=== PATIENT | female | born 1950 | race Caucasian/White ===

== ENCOUNTER 2017-01-28 23:00 | Inpatient (IN) | payer OTHER ==
[~2017-01-28] VITALS: Ht 152.4 cm; Wt 136.1 kg
--- NOTE | ~2017-01-28 | PN ---
Unit #: [id number] #: [id number] Patient: ISRAEL SUAREZ [id number] [facility] [address] [place] [address] [id number] I MR#: [id number] NAME: ISRAEL SUAREZ ROOM: [facility] Age: 66 Sex: F Admission Date: 01/29/2017 : 1950 Attending Physician: Anne Naylor M.D. Admitting Physician: Anne Naylor M.D. Primary Care Physician: Isabel Doctor Not In System [facility] PROGRESS NOTES DATE January 31, 2017 DISCUSSION Ms. Suarez is a 66-year-old white female, with mood disorder, who was seen today and chart was reviewed and the case was discussed with the staff. The patient has been anxious, withdrawn, and rather seclusive to herself. Meanwhile, she has been cooperative with the treatment recommendations and has been taking the medications and tolerating them fairly well with no reported side effects. MENTAL STATUS EXAMINATION An elderly white female, who was casually dressed with fair personal hygiene and appears to be in no acute distress or discomfort. The patient was awake and alert with impaired attention and concentration. Her mood was anxious with a congruent affect. The patient denies any suicidal or homicidal ideations. Her insight and judgment remain slightly impaired. TREATMENT PLAN 1. We will continue her on her current treatment protocol, and will monitor her response to the medications, and make further adjustments as needed. 2. We will continue to followup. Dictated by... Yojana Mata/darrell TD: 02/01/2017 07:35 JOB #: [id number] Unit #: [id number] #: [id number] Patient: ISRAEL SUAREZ PROGRESS NOTES Page 1 of 1 X Anne Naylor MD PROGRESS NOTE
--- NOTE | ~2017-01-28 | DS ---
Unit #: [id number] #: [id number] Patient: ISRAEL SUAREZ [id number] [facility] [address] [place] [address] [id number] I MR#: [id number] NAME: ISRAEL SUAREZ ROOM: [facility] Age: 66 Sex: F Admission Date: 01/29/2017 : 1950 Discharge Date: 02/02/2017 Attending Physician: Anne Naylor M.D. Primary Care Physician: Generic Doctor Not In System DISCHARGE SUMMARY IDENTIFYING DATA Ms. Suarez is a 66-year-old , disabled, white female, who is a resident of [place], [place], and was brought to the hospital by her spouse. DISCHARGE DIAGNOSES Psychiatric: Major depressive disorder, recurrent, moderate, with psychosis. Medical: Chronic obstructive pulmonary disease, dyslipidemia, degenerative disk disease, obesity. Stressors: Moderate psychosocial stressors. HISTORY OF PRESENT ILLNESS Please see initial psychiatric evaluation for details. PAST PSYCHIATRIC HISTORY Please see initial psychiatric evaluation for details. PAST MEDICAL HISTORY Please see initial psychiatric evaluation for details. HOSPITAL COURSE The patient was [facility] and was oriented to the hospital environment. Routine p.r.n. medications were initiated, and she was started back on her home medications and medications were adjusted and she was closely monitored. She was started on Seroquel to help with mood and was seen to be doing fairly well with improvement in depression and anxiety, and was denying any thoughts of wanting to hurt anyone else and was not meeting criteria for further inpatient psychiatric hospitalization and as such, it was decided that she will be discharged home and will continue treatment on an outpatient basis. DISCHARGE MEDICATIONS Seroquel 50 mg at bedtime. DISCHARGE CONDITION Stable. PROGNOSIS Fair. Dictated by... Unit #: [id number] #: [id number] Patient: ISRAEL SUAREZ Yojana Mata/cayla TD: 02/02/2017 07:09 JOB #: [id number] DISCHARGE SUMMARY Page 1 of 1 X Anne Naylor MD X DISCHARGE SUMMARY
--- NOTE | ~2017-01-28 | PN ---
Unit #: [id number] #: [id number] Patient: ISRAEL SUAREZ [id number] [facility] [address] [place] [address] [id number] MR#: [id number] NAME: ISRAEL SUAREZ ROOM: [facility] Age: 66 Sex: F Admission Date: 01/29/2017 : 1950 Attending Physician: Anne Naylor M.D. Admitting Physician: Anne Naylor M.D. Primary Care Physician: Generic Doctor Not In System [facility] PROGRESS NOTES DATE 02/01/2017 DISCUSSION Ms. Suarez is a 66-year-old white female who was seen today and chart was reviewed and case was discussed with the staff. She has been anxious, withdrawn, rather seclusive to herself though has not shown any agitation or aggression and appears to be showing improvement in her mood and cognitive functioning without any complications. MENTAL STATUS EXAMINATION An elderly white female who was casually dressed with fair personal hygiene and appears to be in no acute distress or discomfort. She was awake and alert with impaired attention and concentration. Her mood was anxious with congruent affect. She denies any suicidal or homicidal ideations. Her insight and judgement remains slightly impaired. TREATMENT PLAN 1. Will continue on current medications and treatment protocol. Will monitor her response to the medications and make further adjustments as needed. 2. Will continue to follow up. Dictated by... Anne Naylor M.D. IAA/xavi TD: 02/01/2017 22:01 JOB #: [id number] Unit #: [id number] #: [id number] Patient: ISRAEL SUAREZ PROGRESS NOTES Page 1 of 1 X Anne Naylor MD PROGRESS NOTE
--- NOTE | ~2017-01-28 | CO ---
Unit #: [id number] #: [id number] Patient: ISRAEL SUAREZ [id number] [place] [address] [id number] I MR#: [id number] NAME: ISRAEL SUAREZ ROOM: [facility]6 Age: 66 Sex: F Admission Date: 01/29/2017 : 1950 Attending Physician: Anne Naylor M.D. Primary Care Physician: Generic Doctor Not In System Consultation Date: 02/01/2017 CONSULTATION REPORT HISTORY OF PRESENT ILLNESS Israel reports frequent yeast infections under her breasts and in her pannus. She recently has been treated with nystatin powder topical t.i.d. However, she is concerned that it is not getting better. She started this on 01/30/2017 and has had treatment since then. She also has multiple other complaints including her heart stopping frequently and is a very poor historian. PHYSICAL EXAMINATION CARDIAC: Regular rate and rhythm. No murmurs, gallops, or rubs. RESPIRATORY: Clear to auscultation bilaterally. SKIN: Redness in pannus and under bilateral breasts. ASSESSMENT AND PLAN Intertriginous candidal infection. We will continue with the nystatin powder. The patient was instructed to completely dry area after showers. Most likely, she will continue to complain about this; however, at this time, there is no further treatment indicated. Dictated by... Aly Feliciano/cayla TD: 02/02/2017 01:38 JOB #: [id number] CONSULTATION REPORT Page 1 of 1 X JANEY HERNÁNDEZ APRN X CONSULTATION REPORT
--- NOTE | ~2017-01-28 | PN ---
Unit #: [id number] #: [id number] Patient: ISRAEL SUAREZ [id number] [facility] [address] [place] [address] [id number] I MR#: [id number] NAME: ISRAEL SUAREZ ROOM: [facility]6 Age: 66 Sex: F Admission Date: 01/29/2017 : 1950 Attending Physician: Anne Naylor M.D. Admitting Physician: Anne Naylor M.D. Primary Care Physician: Generic Doctor Not In System [facility] PROGRESS NOTES DATE OF SERVICE: 01/30/2017 SUBJECTIVE Ms. Granda is a 66-year-old white female, who was seen today and chart was reviewed, and case was discussed with the staff. She has been doing fairly well with no agitation or irritability or behavioral problems, and has been cooperative with treatment recommendations and has been taking the medications and tolerating them fairly well with no reported side effects. MENTAL STATUS EXAMINATION An elderly white female, who was casually dressed with fair personal hygiene, appears to be in no acute distress or discomfort. She was awake and alert with impaired attention and concentration. Her mood was anxious with a congruent affect. Her speech was slow and restricted in content. She denies any suicidal or homicidal ideations, and also denies any auditory or visual hallucinations. Her insight and judgment remain significantly impaired. TREATMENT PLAN We will continue her on her current treatment protocol. We will monitor her response and make further adjustments as needed. Dictated by... Yojana Mata/cayla TD: 01/30/2017 13:48 JOB #: [id number] [facility] PROGRESS NOTES Page 1 of 1 X Anne Naylor MD PROGRESS NOTE
--- NOTE | ~2017-01-28 | PA ---
Unit #: [id number] #: [id number] Patient: ISRAEL SUAREZ [id number] [facility] [address] [place] [address] [id number] I MR#: [id number] NAME: ISRAEL SUAREZ ROOM: [facility]6 Age: 66 Sex: F Admission Date: 01/29/2017 : 1950 Date of Assessment: Attending Physician: Anne Naylor M.D. Admitting Physician: Anne Naylor M.D. Primary Care Physician: Generic Doctor Not In System PSYCHIATRIC ASSESSMENT DATE OF SERVICE 01/29/2017. IDENTIFYING DATA Ms. Suarez is a 66-year-old, , disabled white female, who is a resident of [place], [place], and was brought to the hospital by the spouse. CHIEF COMPLAINT "I'm hearing voices." HISTORY OF PRESENT ILLNESS Ms. Suarez is a 66-year-old, , morbidly obese white female, who was brought to the hospital as son reports that she has been apparently total care and that she has been purposely rolling out of the bed and she fell and hit her head and has been giving herself bruises, and she has injured her left three toes and foot, which is currently in a boot. The patient reports increasing depression and anxiety and reports hearing voices and she sees her father coming to her, who apparently shot and killed himself. The patient reports paranoia and that the whole world is dangerous. The patient's denied any substance abuse. The patient was taken to the [facility] where she was medically cleared and was transferred to us. The patient's was admitted to the hospital on Tuesday because they thought that he was having a heart attack, and the patient has been having altered mental status since then and keeps saying that she wants to go to bed and is not sleeping well and her appetite in poor and she is hard to understand and has been making nonsensical statements. Son who accompanied the patient reports that the patient was afraid to get out of the van yesterday and it took them about 90 minutes to get her out of the van. The patient reports that the patient has been mean to the family and it is out of her character and the patient has been sitting with her head down and is only making minimal eye contact. On evaluation by me, the patient was lying in her bed and was noticed to be significantly overweight and unable to walk and has a wheelchair next to her and her left foot was in the boot after she has injured her 3 toes and was constantly shaking and was making bizarre statements and stating that she "stinks like a pig" and she needs a sponge bath and she is a total care and she cannot clean herself up and was exhibiting bizarre behavior and as such, a recommendation for continued care was made. SUBSTANCE ABUSE HISTORY The patient does not have any history of exposure to alcohol and drugs. Unit #: [id number] #: [id number] Patient: ISRAEL SUAREZ PAST PSYCHIATRIC HISTORY The patient has had a history of inpatient psychiatric hospitalization at [facility] in 03/2016, and review of the medical records indicate that currently she is seeing a psychiatrist on an outpatient basis. PAST MEDICAL HISTORY The patient's medical history is significant for COPD, obesity, dyslipidemia, and degenerative disk disease. PERSONAL AND SOCIAL HISTORY A 36-year-old white female, who reports that she is and lives at home with her and has fairly decent social support system. MENTAL STATUS EXAMINATION An elderly obese white female, who was casually dressed with fair personal hygiene, appears to be in no acute distress or discomfort. She was awake and alert with impaired attention and concentration. Her mood was anxious and depressed with a congruent affect. Her speech was slow and tangential. Her thought processes were disorganized with some looseness of associations, flight of ideas, paranoid ideations, and delusional behavior. Her insight and judgment remain significantly impaired. DIAGNOSTIC IMPRESSION Psychiatric: Major depressive disorder, recurrent, moderate, with psychosis. Medical: Chronic obstructive pulmonary disease, dyslipidemia, and degenerative disk disease. Stressors: Moderate psychosocial stressors. TREATMENT PLAN 1. The patient has presented with a history of mood disorder and psychosis and will need inpatient hospitalization for safety and stabilization. We will start her back on her home medications. We will adjust the medications and monitor response. 2. Supportive therapy was provided to the patient. 3. Safe, structured, and nourishing environment will be provided. ESTIMATED LENGTH OF STAY 5 to 7 days. ABILITY TO HELP SELF Limited. WILLINGNESS TO HELP SELF The patient appears to be willing to help self. STRENGTHS 1. Communicative. 2. Cooperative. PROBLEMS 1. Chronic dysphoric symptoms. 2. Poor social support system. DISCHARGE CRITERIA This will be contingent upon the patient's ability to show resolution of her depression and anxiety and her ability to stay safe to herself, particularly after discharge from the hospital. Unit #: [id number] #: [id number] Patient: ISRAEL SUAREZ Dictated by... Yojana Mata/cayla TD: 01/29/2017 16:11 JOB #: [id number] PSYCHIATRIC ASSESSMENT Page 1 of 1 X Anne Naylor MD X PSYCHIATRIC ASSESSMENT
--- NOTE | ~2017-01-28 | HP ---
Unit #: [id number] #: [id number] Patient: ISRAEL SUAREZ [id number] [place] [address] [id number] MR#: [id number] NAME: ISRAEL SUAREZ ROOM: [facility]6 Age: 66 Sex: F Admission Date: 01/29/2017 : 1950 Attending Physician: Anne Naylor M.D. Admitting Physician: Anne Naylor M.D. Primary Care Physician: Generic Doctor Not In System HISTORY AND PHYSICAL HISTORY OF PRESENT ILLNESS The patient is a 66-year-old female who states she is here for depression but "I am of sound mind and if you are not Yazidism and if you cannot get the nurse to come to me you are going to have to leave my room." PAST MEDICAL HISTORY 1. Hypertension. 2. Asthma. 3. Blood pressure. 4. Cholesterol. 5. Anxiety. 6. Thyroid. PAST SURGICAL HISTORY Patient declines to comment. ALLERGIES Penicillin, sulfa, Levaquin. SOCIAL HISTORY Negative. FAMILY HISTORY Noncontributory. REVIEW OF SYSTEMS CONSTITUTIONAL: No fever or chills. HEENT: Denies any sore throat, ear pain or runny nose. CARDIOVASCULAR: Denies chest pain, irregular heart rhythm or palpitations. CHEST: Denies shortness of breath or cough. No hemoptysis. GASTROINTESTINAL: Denies nausea, vomiting, diarrhea or chronic constipation. ENDOCRINE: Denies history of increased thirst or urination. No recent significant weight loss or gain. GENITOURINARY: Denies dysuria, frequency, or hematuria. SKIN: Denies any rashes. HEMATOLOGIC: Denies history of increased bleeding or bruising. MUSCULOSKELETAL: Denies any hot, swollen joints. No generalized muscle pain. NEUROLOGIC: Denies problems with vision or speech. No frequent, severe headaches. No numbness, tingling or weakness in any extremities. Denies loss of bladder or bowel control. Unit #: [id number] #: [id number] Patient: ISRAEL SAUREZ CURRENT MEDICATIONS 1. Primidone 50 mg p.o. 3 tablets q.h.s. 2. Oxycodone/acetaminophen 7.5/325 p.o. q. 6 hours p.r.n. 3. Ropinirole 5 mg p.o. q.h.s. 4. Docusate 100 mg p.o. b.i.d. 5. Hydroxyzine 25 mg p.o. q. 6 hours p.r.n. 6. Vitamin D3 2000 units p.o. daily. 7. Oxybutynin 5 mg p.o. b.i.d. 8. Singulair 10 mg p.o. daily. 9. Potassium chloride 20 mEq p.o. daily. 10. Metoprolol 25 mg p.o. daily. 11. Zetia 10 mg p.o. daily. 12. Lasix 20 mg p.o. daily. 13. Neurontin 300 mg p.o. b.i.d. 14. Hydroxyzine 25 mg p.o. 2 b.i.d. 15. Levothyroxine 125 mcg p.o. q.h.s. 16. Aspirin 81 mg p.o. daily. 17. Atorvastatin 40 mg p.o. q.h.s. 18. Seroquel 50 mg p.o. daily. 19. BuSpar 30 mg 1 b.i.d. 20. Nexium 40 mg p.o. daily. PHYSICAL EXAMINATION GENERAL: Alert, oriented, in no acute distress, lying in bed. Patient refuses to sit up. VITAL SIGNS: Blood pressure 149/49, heart rate 76, respirations 18, temperature 98.1. HEIGHT: 5 feet. WEIGHT: 300 pounds. SKIN: Warm and dry without rash or lesion. Boot on the left foot. HEENT: Normocephalic. TMs not viewed. Oral and nasal passages clear. Conjunctivae clear. PERRLA. EOMs intact. NECK: Supple without lymphadenopathy or thyromegaly. HEART: Regular rate and rhythm without murmur. LUNGS: Clear. ABDOMEN: Soft, nontender, without masses or hepatosplenomegaly. : Not done. EXTREMITIES: No evidence of cyanosis, clubbing or edema. Moves all without focal deficit. NEUROLOGICAL: Grossly within normal limits. Cranial Nerves: II: Visual tavera are intact. III, IV AND : Extraocular movements are intact. Pupils are equal, round and reactive to light. V: Facial sensation is grossly normal. VII: Facial movements and expression are normal. VIII: Auditory acuity grossly intact. IX, X: Uvula is midline. Phonation is normal. XI: Patient shrugs shoulders and turns head normally. XII: Tongue protrudes in the midline. Sensory and Motor Function: Sensory and motor sensation is grossly normal. Motor: moves all extremities well. Coordination: Gait is normal. Deep Tendon Reflexes: Intact. IMPRESSION Psychiatric admission. RECOMMENDATIONS PSYCHIATRIC: Per psychiatrist. MEDICAL: No contraindication to participate in facility's activities. Unit #: [id number] #: [id number] Patient: ISRAEL SUAREZ MEDICAL PROGNOSIS Good. Dictated by... Aly Asencio/xavi TD: 01/29/2017 18:10 JOB #: [id number] HISTORY AND PHYSICAL Page 1 of 1 X Esmer Dias APR X HISTORY AND PHYSICAL
[2017-01-30 12:07] LABS: BASOPHIL# 0.1 X10e3 (0-0.3); BASOPHIL% 0.8 % (0-2.5); EOSINOPHIL# 0.1 X10e3 (0-0.7); EOSINOPHIL% 1.1 % (0.0-7.0); HEMATOCRIT 48.6 % (35.0-45.0); HEMOGLOBIN 15.6 gm/dL (12.0-16.0); LYMPHOCYTE# 2.1 X10e3 (1.0-3.5); LYMPHOCYTE% 20.7 % (17.0-45.0); MEAN CELL VOLUME 88.3 FL (83-96); MEAN CORPUSCULAR HEMOGLOBIN 28.3 PG (28-34); MEAN CORPUSCULAR HGB CONC 32.1 g/dL (30-36); MEAN PLATELET VOLUME 10.7 FL (6.5-11.5); MONOCYTE% 9.5 % (3.0-12.0); NEUTROPHIL# 6.8 X10e3 (1.5-7.1); NEUTROPHIL% 67.9 % (40-75); PLATELET COUNT 161 X10e3 (140-420); RED CELL DISTRIBUTION WIDTH 14.7 % (11.0-15.5)
[2017-01-30 12:09] LABS: DIFF IND NO
[2017-01-30 12:29] LABS: ALBUMIN SERUM 3.6 g/dL (3.5-5.0); BILIRUBIN,TOTAL 1.6 mg/dL (0.2-2.0); BUN/CREATININE RATIO 16.66; CALCIUM SERUM 9.4 mg/dL (8.4-10.2); CREATININE SERUM 0.9 mg/dL (0.6-1.4); GLOM FILT RATE Estimated 67.1 mL/min (>60); POTASSIUM 4.2 mmol/L (3.5-5.1); PROTEIN TOTAL SERUM 6.8 g/dL (6.0-8.3)
== END 2017-02-02 17:49 | disposition home or self-care (01) | DRG 885 ==
LOC: P1S 01-29 02:51
PROVIDERS: Psychiatry & Neurology Psychiatry
DX: F33.3 Major depressive disorder, recurrent, severe with psychotic symptoms (principal); J44.9 Chronic obstructive pulmonary disease, unspecified; I10 Essential (primary) hypertension; E78.5 Hyperlipidemia, unspecified; Z88.0 Allergy status to penicillin; Z88.2 Allergy status to sulfonamides; Z88.8 Allergy status to other drugs, medicaments and biological substances
CPT/HCPCS: 80053; 85025